=== PATIENT | female | born 1950 | race Caucasian/White ===

== ENCOUNTER 2016-10-27 16:06 | Emergency (ER) | payer MEDICARE, BC ==
[~2016-10-27] VITALS: Ht 162.6 cm; Wt 72.0 kg
[2016-10-27] MEDS ORDERED: VERAPAMIL120 M1 PO (18:08)
[2016-10-27] MEDS ORDERED: DIGOXIN0.25 MG PO (18:09)
[2016-10-27] MEDS ORDERED: ADLT ASA LOW81 MG PO (18:09)
[2016-10-27] MEDS ORDERED: FUROSEMIDE20 MG PO (18:09)
[2016-10-27] MEDS ORDERED: MULTI VIT PO (18:10)
[2016-10-27] MEDS ORDERED: TRUBIOTICS PO (18:10)
[2016-10-27] MEDS ORDERED: NAPROSYN500 MG PO (20:02)
[2016-10-27 20:12] VITALS: BP 139/74
== END 2016-10-27 20:12 | disposition home or self-care (01) ==
LOC: ED 16:06
DX: S80.12XA Contusion of left lower leg, initial encounter (principal); X58.XXXA Exposure to other specified factors, initial encounter; M79.89 Other specified soft tissue disorders; M79.662 Pain in left lower leg